=== PATIENT | female | born 1965 | race Caucasian/White ===

== ENCOUNTER 2019-03-24 12:24 | Emergency (ER) | payer BC ==
[2019-03-24] MEDS ORDERED: Metoclopramide 10 MG/2 ML SDV IVPUSH ONE (13:01)
[2019-03-24] MEDS ORDERED: HYDROmorphone 1 MG/ML Syringe IVPUSH ONE ×2 (13:01→15:02)
--- NOTE | 2019-03-24 13:07 | EDM.PDOC ---
ED HPI GENERAL MEDICAL PROBLEM - General Chief Complaint: Lower Extremity Injury/Pain Stated Complaint: LT KNEE INJURY Time Seen by Provider: 03/24/19 13:00 Source of Information: Reports: Patient, Family (spouse) History Limitations: Reports: No Limitations - History of Present Illness INITIAL COMMENTS - FREE TEXT/NARRATIVE: 53-year-old female presents to the ED after slipping and falling out of the back of a half ton truck with a direct blow to the left knee with the knee in the flexed position i.e. heel on her posterior thigh. Immediate pain and swelling and inability to get up or walk after injury. She denies hitting her head ribs upper extremities or any other body parts. Injury occurred approximately 45 minutes before coming into the ED today. Her and her reside in [place] and are here visiting. He is otherwise healthy taking no antibiotics and indicates that she is allergic to sulfonamide antibiotic. Bili she broke an ankle once in the past and it was casted. He believes it was the left one. Current pain is constant and throbbing and radiating from the knee down towards the ankle and also up towards her left hip. Onset: Today Onset Date: 03/24/19 Onset Time: 11:45 Duration: Minutes:, Getting Worse Location: Reports: Lower Extremity, Left (Severe pain left knee), Radiates to ( Radiates down towards her left ankle and up towards her left hip.) Quality: Reports: Ache, Throbbing Severity: Severe (9 out of 10) Improves with: Reports: Rest Worsens with: Reports: Other, Movement Context: Reports: Trauma (Slipped and fell out of the back of a half ton truck landing with directly on her left knee.). Denies: Activity, Exercise, Lifting, Sick Contact (Cannot weight-bear on the left side.) Associated Symptoms: Reports: No Other Symptoms Treatments [employer] WORK[employer] P[employer]IATIVE CARE: Reports: Other (see below) Other Treatments [employer] WORK[employer] PALLIATIVE CARE: none Left Lower Leg Pain Score (Numeric/FACES): 10 - Related Data Allergies Allergy/AdvReac Type Severity Reaction Status Date / Time Sulfa (Sulfonamide Allergy Other Verified 03/24/19 12:36 Antibiotics) Home Meds: Home Meds . [No Known Home Meds] 03/24/19 [History] Past Medical History Musculoskeletal History: Reports: Other (See Below) Other Musculoskeletal History: neck surgery.Previous post fracture of her left ankle requiring casting many years ago Social & Family History - Tobacco Use Smoking Status *Q: Current Every Day Smoker Years of Tobacco use: 30 Packs/Tins Daily: 1 - Caffeine Use Caffeine Use: Reports: Coffee, Soda - Recreational Drug Use Recreational Drug Use: No - Living Situation & Occupation Living situation: Reports: Occupation: Employed Review of Systems - Review of Systems Review Of Systems: See Below Constitutional: Reports: No Symptoms Eyes: Reports: No Symptoms Ears: Reports: No Symptoms Nose: Reports: No Symptoms Mouth/Throat: Reports: No Symptoms Respiratory: Reports: No Symptoms Cardiovascular: Reports: No Symptoms GI/Abdominal: Reports: No Symptoms Genitourinary: Reports: No Symptoms Musculoskeletal: Reports: Joint Pain Skin: Reports: No Symptoms (Severe pain left knee since injury today.) Neurological: Reports: No Symptoms Psychiatric: Reports: No Symptoms ED EXAM, GENERAL - Physical Exam Exam: See Below Exam Limited By: No Limitations General Appearance: Alert, WD/WN, No Apparent Distress, Mild Distress, Other ( Very stoic lady. Temp to 37.2 with a heart rate of 90 and sinus. Respiratory is 20 with O2 sats of 97% on room air. BP is mildly elevated 1 5100 due to pain response) Eye Exam: Bilateral Eye: Normal Inspection, PERRL Ears: Normal TMs Respiratory/Chest: No Respiratory Distress, Lungs Clear, Normal Breath Sounds, No Accessory Muscle Use, Chest Non-Tender, Other (No pain on from compression of her ribs.) Cardiovascular: Normal Peripheral Pulses, Regular Rate, Rhythm, No Edema, No Gallop, No Murmur, No Rub Peripheral Pulses: 3+: Posterior Tibial (L), Posterior Tibial (R), Dorsalis Pedis (L), Dorsalis Pedis (R) GI/Abdominal: Normal Bowel Sounds, Soft, Non-Tender, No Organomegaly, No Abnormal Bruit, No Mass, Pelvis Stable, Other (No surgical scars) Back Exam: Normal Inspection, Full Range of Motion. No: CVA Tenderness (L), CVA Tenderness (R) Extremities: Other (Examination of her upper extremities show no injuries to the hands wrists elbows or shoulders. She is able to put both hands above her head with no difficulty. The right lower extremity also has full range of motion at the hip and knee and ankle. On the left side she is unable to lift it off the gurney. There is obvious swelling and deformity particularly just inferior to the left knee. He also appears to be deviated slightly lateral. Position of comfort is 30 flexion. Highly suspect a fracture of the tibial plateau) Neurological: Alert ( on initial exam.), Oriented, CN II-XII Intact, Normal Cognition, No Motor/Sensory Deficits. No: Normal Gait (She cannot weight-bear on the left side) Psychiatric: Normal Affect, Other Skin Exam: Warm (And a good deal of pain.), Dry, Intact, Normal Color, No Rash Course - Vital Signs Last Recorded V/S: Last Vital Signs Temp 37.2 C 03/24/19 12:39 Pulse 90 03/24/19 12:39 Resp 20 03/24/19 12:39 BP 150/100 H 03/24/19 12:39 Pulse Ox 97 03/24/19 12:39 - Orders/Labs/Meds Orders: Active Orders 24 hr Category Date Time Status EKG Documentation Completion [RC] STAT Care 03/24/19 13:37 Active Knee wo Cont Lt [CT] Stat Exams 03/24/19 13:28 Taken Dextrose 5%-Lactated Ringers 1,000 ml Med 03/24/19 13:15 Active IV ASDIRECTED DME for Discharge [COMM] Stat Oth 03/24/19 15:14 Ordered Medication Orders Dextrose/Lactated Ringer's (Dextrose 5%-Lactated Ringers) 1,000 mls @ 200 mls/ hr IV ASDIRECTED [facility] Last Admin: 03/24/19 13:08 Dose: 200 mls/hr Labs: Laboratory Tests 03/24/19 03/24/19 03/24/19 Range/Units 13:00 13:00 13:00 WBC 13.42 H (3.98-10.04) K/mm3 RBC 4.42 (3.98-5.22) M/mm3 Hgb 14.0 (11.2-15.7) gm/dl Hct 42.9 (34.1-44.9) % MCV 97.1 H (79.4-94.8) fl MCH 31.7 (25.6-32.2) pg MCHC 32.6 (32.2-35.5) g/dl RDW Std Deviation 44.0 (36.4-46.3) fL Plt Count 282 (182-369) K/mm3 MPV 11.8 (9.4-12.3) fl Neut % (Auto) 82.9 H (34.0-71.1) % Lymph % (Auto) 13.0 L (19.3-51.7) % [place] % (Auto) 3.1 L (4.7-12.5) % Eos % (Auto) 0.7 (0.7-5.8) Baso % (Auto) 0.2 (0.1-1.2) % Neut # (Auto) 11.11 H (1.56-6.13) K/mm3 Lymph # (Auto) 1.75 (1.18-3.74) K/mm3 [place] # (Auto) 0.41 H (0.24-0.36) K/mm3 Eos # (Auto) 0.10 (0.04-0.36) K/mm3 Baso # (Auto) 0.03 (0.01-0.08) K/mm3 PT 10.2 (9.7-12.0) SECONDS INR 0.93 APTT 22 (22-31) SECONDS Sodium 140 (136-145) mEq/L Potassium 3.9 (3.5-5.1) mEq/L Chloride 104 (98-107) mEq/L Carbon Dioxide 25 (21-32) mEq/L Anion Gap 14.9 (5-15) BUN 19 H (7-18) mg/dL Creatinine 1.1 H (0.55-1.02) mg/dL Est Cr Clr Drug Dosing 56.85 mL/min Estimated GFR (MDRD) 52 (>60) mL/min BUN/Creatinine Ratio 17.3 (14-18) Glucose 104 (74-106) mg/dL Calcium 9.6 (8.5-10.1) mg/dL Magnesium 1.8 (1.8-2.4) mg/dl Total Bilirubin 0.6 (0.2-1.0) mg/dL AST 11 L (15-37) U/L ALT 21 (14-59) U/L Alkaline Phosphatase 86 (46-116) U/L Total Protein 7.8 (6.4-8.2) g/dl Albumin 4.0 (3.4-5.0) g/dl Globulin 3.8 gm/dL Albumin/Globulin Ratio 1.1 (1-2) Urine Color (Yellow) Urine Appearance (Clear) Urine pH (5.0-8.0) Ur Specific Bond (1.005-1.030) Urine Protein (Negative) Urine Glucose (UA) (Negative) Urine Ketones (Negative) Urine Occult Blood (Negative) Urine Nitrite (Negative) Urine Bilirubin (Negative) Urine Urobilinogen (0.2-1.0) Ur Leukocyte Esterase (Negative) Urine RBC (0-5) /hpf Urine WBC (0-5) /hpf Ur Squamous Epith Cells (0-5) /hpf Urine Bacteria (FEW) /hpf Hyaline Casts (0-5) /lpf Urine Mucus (FEW) /hpf 03/24/19 Range/Units 14:00 WBC (3.98-10.04) K/mm3 RBC (3.98-5.22) M/mm3 Hgb (11.2-15.7) gm/dl Hct (34.1-44.9) % MCV (79.4-94.8) fl MCH (25.6-32.2) pg MCHC (32.2-35.5) g/dl RDW Std Deviation (36.4-46.3) fL Plt Count (182-369) K/mm3 MPV (9.4-12.3) fl Neut % (Auto) (34.0-71.1) % Lymph % (Auto) (19.3-51.7) % [place] % (Auto) (4.7-12.5) % Eos % (Auto) (0.7-5.8) Baso % (Auto) (0.1-1.2) % Neut # (Auto) (1.56-6.13) K/mm3 Lymph # (Auto) (1.18-3.74) K/mm3 [place] # (Auto) (0.24-0.36) K/mm3 Eos # (Auto) (0.04-0.36) K/mm3 Baso # (Auto) (0.01-0.08) K/mm3 PT (9.7-12.0) SECONDS INR APTT (22-31) SECONDS Sodium (136-145) mEq/L Potassium (3.5-5.1) mEq/L Chloride (98-107) mEq/L Carbon Dioxide (21-32) mEq/L Anion Gap (5-15) BUN (7-18) mg/dL Creatinine (0.55-1.02) mg/dL Est Cr Clr Drug Dosing mL/min Estimated GFR (MDRD) (>60) mL/min BUN/Creatinine Ratio (14-18) Glucose (74-106) mg/dL Calcium (8.5-10.1) mg/dL Magnesium (1.8-2.4) mg/dl Total Bilirubin (0.2-1.0) mg/dL AST (15-37) U/L ALT (14-59) U/L Alkaline Phosphatase (46-116) U/L Total Protein (6.4-8.2) g/dl Albumin (3.4-5.0) g/dl Globulin gm/dL Albumin/Globulin Ratio (1-2) Urine Color Yellow (Yellow) Urine Appearance Clear (Clear) Urine pH 6.5 (5.0-8.0) Ur Specific Bond 1.025 (1.005-1.030) Urine Protein Trace H (Negative) Urine Glucose (UA) Negative (Negative) Urine Ketones Negative (Negative) Urine Occult Blood Trace-lysed H (Negative) Urine Nitrite Negative (Negative) Urine Bilirubin Negative (Negative) Urine Urobilinogen 0.2 (0.2-1.0) Ur Leukocyte Esterase Negative (Negative) Urine RBC 5-10 H (0-5) /hpf Urine WBC 0-5 (0-5) /hpf Ur Squamous Epith Cells 0-5 (0-5) /hpf Urine Bacteria Few (FEW) /hpf Hyaline Casts 0-5 (0-5) /lpf Urine Mucus Few (FEW) /hpf Meds: Medications Generic Name Dose Route Start Last Admin Trade Name Freq PRN Reason Stop Dose Admin Dextrose/Lactated Ringer's 1,000 mls @ 200 mls/hr 03/24/19 13:15 03/24/19 13: 08 Dextrose 5%-Lactated Ringers IV 200 mls/hr ASDIRECTED JOSLYN Administration Discontinued Medications Generic Name Dose Route Start Last Admin Trade Name Freq PRN Reason Stop Dose Admin Hydromorphone HCl 1 mg 03/24/19 13:01 03/24/19 13:09 Dilaudid IVPUSH 03/24/19 13:02 1 mg ONETIME ONE Administration Hydromorphone HCl 1 mg 03/24/19 15:02 03/24/19 15:06 Dilaudid IVPUSH 03/24/19 15:03 1 mg ONETIME ONE Administration Metoclopramide HCl 10 mg 03/24/19 13:01 03/24/19 13:09 Reglan IVPUSH 03/24/19 13:02 10 mg ONETIME ONE Administration - Radiology Interpretation Free Text/Narrative:: 53-year-old female presents the ED for evaluation of an acute injury to her left knee. She slipped and fell off the back of a half ton truck with direct blow to her left knee as the leg was flexed at the knee with the heel on her posterior thigh when she landed. She had immediate pain in her left leg and knee and her had to straighten her leg out. She states position of comfort is in 30 flexion. She is otherwise in good health developing a rash to sulfa antibiotics and currently not on any medications. Plan she will have an x- ray of her left tib-fib and knee done. If it looks like a tibial plateaus fracture on plain films I will have CT done of the knee. - Re-Assessments/Exams Free Text/Narrative Re-Assessment/Exam: 03/24/19 13:32 CT of the knee has been done and reveals a severely comminuted fracture of the lateral aspect of the tibial plateau. I count 8 separate pieces. Is also a fracture of the head of the left fibula. There is a large effusion in the joint. Splint was made to keep the knee at 30 flexion. Ice pack applied to the knee. Initial dose of Dilaudid 1 mg IV has helped immensely with the pain. I will contact her orthopedic surgeon on-call at [facility] in [place]. 03/24/19 13:00: [facility] Dr. Barraza who is the orthopedic surgeon salesperson parts is currently in the operating room and he will call back as soon as he has a look at the films. Portable chest x-ray is within normal limits. Please of the CT of the left knee, x-rays of the tib-fib left side and chest x-ray transmitted by PACs to [facility] in [place]. 03/24/19 16:00: Dr Barraza has called back and has accepted care through the hospitalist who will be I did speak with as well. And he has accepted care. Patient be transported per her to that facility since we have no [facility] available at this time to provide transport. Both [facility] are out and [facility] [place] [facility] is enroute to [facility]. Labs reveal a mildly elevated white count at 13.42 with a left shift of 83% neutrophils on the auto differential. Hemoglobin is 14.0 with hematocrit of 42.9. MCV is mildly elevated at 97.1. Platelet count is normal at 282,000. PT is 10.2 with an INR of 0.93. PTT is 22. Sodium is 140 with a potassium of 3.9. Chloride is 104 with a bicarbonate of 25. Anion gap is 14.9. BUN is 19 with a creatinine of 1.1.e GFR is estimated to be 52. Glucose is 104 the calcium 9.6. Magnesium is 1.8. Liver function is normal with a bilirubin of 0.6 and AST of 11 and ALT of 21. Alkaline phosphatase is 86. Total protein is 7.8 with an old infarction normal at 4.0. Urinalysis shows trace of RBCs and 5-10 RBCs per high-power field on the slide. Departure - Departure Time of Disposition: 16:18 Disposition: DC/Tfer to Acute Hospital 02 Condition: Fair Clinical Impression: Tibial plateau fracture, left Qualifiers: Encounter type: initial encounter Fracture type: closed Qualified Code(s): S82.142A - Displaced bicondylar fracture of left tibia, initial encounter for closed fracture - Discharge Information *PRESCRIPTION DRUG MONITORING PROGRAM REVIEWED*: Not Applicable *COPY OF PRESCRIPTION DRUG MONITORING REPORT IN PATIENT DIANA: Not Applicable Instructions: Cast or Splint Care, Adult, [id number] Referrals: PCP,None [Primary Care Provider] - Forms: ED Department Discharge Additional Instructions: [facility] to [facility] where you to be a direct admit under the hospitalist service. His name is Dr. Pratt. I've spoken with Dr. Barraza-- orthopedic surgeon and he agrees that surgical management is indicated. He indicated the surgerywill likely be tomorrow so it's okay to eat today. Ice pack to the knee over the splint as tolerated. Sepsis Event Note - Evaluation Sepsis Screening Result: No Definite Risk - Focused Exam Vital Signs: Vital Signs Temp Pulse Resp BP Pulse Ox 03/24/19 12:39 37.2 C 90 20 150/100 H 97 Date Exam was Performed: 03/24/19 Time Exam was Performed: 16:24 - My Orders Last 24 Hours: My Active Orders 03/24/19 13:15 Dextrose 5%-Lactated Ringers 1,000 ml IV ASDIRECTED 03/24/19 13:28 Knee wo Cont Lt [CT] Stat 03/24/19 13:37 EKG Documentation Completion [RC] STAT 03/24/19 15:14 DME for Discharge [COMM] Stat - Assessment/Plan Last 24 Hours: My Active Orders 03/24/19 13:15 Dextrose 5%-Lactated Ringers 1,000 ml IV ASDIRECTED 03/24/19 13:28 Knee wo Cont Lt [CT] Stat 03/24/19 13:37 EKG Documentation Completion [RC] STAT 03/24/19 15:14 DME for Discharge [COMM] Stat
[2019-03-24] MEDS ORDERED: Dextrose 5%-Lactated Ringers 1,000 ML IV SCH (13:15)
--- NOTE | 2019-03-24 14:06 | CR ---
Chest: Portable view of the chest was obtained. Comparison: No prior chest imaging. Heart size is normal. Tortuous thoracic aorta is seen. Lungs are clear with no acute parenchymal change. Bony structures are grossly intact. Impression: 1. Nothing acute is seen on portable chest x-ray. Diagnostic code #1 This report was dictated in [place] Standard Time
--- NOTE | 2019-03-24 14:06 | CR ---
Left tibia and fibula: AP and lateral views of the left tibia and fibula were obtained. Displaced and comminuted lateral tibial plateau fracture is noted. Fibular head fracture is also noted. Distal tibia and fibula appear intact. Soft tissue swelling is noted around the knee. Incidental plantar spur is noted. Impression: 1. Displaced and comminuted lateral tibial plateau fracture as well as fibular head fracture. 2. Soft tissue swelling. Diagnostic code #3 This report was dictated in [place] Standard Time
--- NOTE | 2019-03-25 07:46 | CT ---
CT left knee Technique: Multiple axial sections through the left knee were obtained. Reconstructed coronal and sagittal images were obtained. Comparison: Previous left knee radiographic study of performed earlier on the same day (1:16 PM). Findings: Comminuted lateral tibial plateau fracture is seen. There is extension slightly medial to the anterior tibial spine. Fracture displacement is seen up to 1.6 cm. Lateral tibial plateau is depressed. Slight osteophytes are noted off the medial and lateral joints. Soft tissue swelling is noted. Distal femur appears without fracture. Patella appears without fracture. Degenerative cystic change is noted within the patellofemoral joint. Slightly comminuted fibular head fracture is also noted. Greatest fracture displacement within the fibular head is 6.5 mm. Impression: 1. Comminuted and displaced lateral tibial plateau fracture. Fracture line extends medial to the tibial spines. 2. Mildly displaced fibular head fracture. 3. Mild degenerative change which is most prominent within the patellofemoral joint. 4. Diffuse soft tissue swelling. Diagnostic code #3 This report was dictated in [place] Standard Time MTDD
== END 2019-03-24 16:30 ==
LOC: JD.ED 12:24
DX: S82.142A Displaced bicondylar fracture of left tibia, initial encounter for closed fracture (principal); F17.210 Nicotine dependence, cigarettes, uncomplicated; Z88.2 Allergy status to sulfonamides; W01.0XXA Fall on same level from slipping, tripping and stumbling without subsequent striking against object, initial encounter; W22.8XXA Striking against or struck by other objects, initial encounter
CPT/HCPCS: 36415; 71045; 73590; 73700; 80053; 81001; 83735; 85025; 85610; 85730; 93005; 96361; 96374; 96375; 96376; 99285; J1170; J2765; J7121; 93010